=== PATIENT | male | born 2005 | race Caucasian/White ===

== ENCOUNTER 2025-02-11 02:45 | Emergency (ER) | payer BC, OTHER | END 2025-02-11 03:23 | disposition home or self-care (01) | LOC: DL.ED 02:45 | DX: S83.91XA Sprain of unspecified site of right knee, initial encounter (principal); Z91.048 Other nonmedicinal substance allergy status; Y04.0XXA Assault by unarmed brawl or fight, initial encounter; Y93.72 Activity, wrestling | CPT/HCPCS: 73562-RT; 99282; 99284 ==